=== PATIENT | female | born 1960 | race Two or more races ===

== ENCOUNTER 2017-04-15 08:53 | Emergency (ER) | payer OTHER ==
[~2017-04-15] VITALS: Ht 149.9 cm; Wt 58.5 kg
[2017-04-15] MEDS ORDERED: cloNIDine HCL 0.1 MG TAB PO ONE (09:15)
[2017-04-15 10:52] VITALS: BP 126/92
[2017-04-15] MEDS ORDERED: KETOROLAC TROMETH 60MG/2ML VIAL IM ONE (11:15)
== END 2017-04-15 11:36 | disposition home or self-care (01) ==
LOC: ER 08:53
DX: M50.30 Other cervical disc degeneration, unspecified cervical region (principal); M54.12 Radiculopathy, cervical region; I10 Essential (primary) hypertension; G89.29 Other chronic pain; M54.5 Low back pain; Z88.2 Allergy status to sulfonamides
CPT/HCPCS: 72040; 93005; 96372; 99284; J1885